=== PATIENT | male | born 1970 | race Caucasian/White ===

== ENCOUNTER 2025-02-28 17:02 | Emergency (ER) | payer OTHER ==
[~2025-02-28] VITALS: Ht 188 cm; Wt 146.2 kg
[~2025-02-28 17:02] MED LIST: IBUPROFEN800 MG PO; RANITIDINE HCL150 M1 PO; TRAMADOL HCL50 MG PO; ZOFRAN ODT4 MG PO
[2025-02-28] MEDS ORDERED: SODIUM CHLORIDE 0.9% 1,000 ML IV PRN (17:15)
[2025-02-28] MEDS ORDERED: KETOROLAC TROMETHAMINE 30 MG/ML VIAL IV ONE (17:15)
[2025-02-28] MEDS ORDERED: HYDROmorphone HCL 1 MG/ML SYR IV PRN ×2 (17:15→20:00)
[2025-02-28 17:23] LABS: BASOPHILS 0.7 % (0.2-1.2); EOSINOPHILS 4.1 % (0.8-7.0); LYMPHOCYTES 21.7 % (21.8-53.1); MCH 29.5 PG (25.7-32.2); MCHC 31.8 g/dL (32.3-36.5); MCV 92.8 fL (79.0-92.2); MONOCYTES 10.3 % (5.3-12.2); NEUTROPHILS 63.0 % (34.0-67.9); RBC 4.84 M/uL (4.63-6.08)
[2025-02-28 17:40] LABS: ALT (SGPT) 43.0 U/L (14-59); AST (SGOT) 26.0 U/L (15-37); GLOMERULAR FILTRATION RATE,EST 57.0 mL/min (>60); PROTEIN, TOTAL 7.6 g/dL (6.4-8.2); UREA NITROGEN 12.0 mg/dL (7-18)
[2025-02-28] MEDS ORDERED: OMEPRAZOLE20 MG PO (18:20)
[2025-02-28] MEDS ORDERED: LISINOPRIL-HCT1 EACH PO (18:20)
[2025-02-28] MEDS ORDERED: CITALOPRAM HBR10 MG PO (18:21)
[2025-02-28] MEDS ORDERED: TAMSULOSIN HCL 0.4 MG CAP PO ONE (20:00)
[2025-02-28 20:24] LABS: BLOOD/HGB, URINE LARGE (Negative); KETONE, URINE NEGATIVE (Negative); LEUK ESTERASE, URINE NEGATIVE (negative); NITRITE, URINE NEGATIVE (negative)
[2025-02-28 20:31] LABS: BACTERIA, URINE NONE SEEN /hpf (negative); CASTS, URINE NONE SEEN \\lpf; CRYSTALS, URINE NONE SEEN (0-1+); EPITHELIAL CELLS, URINE SQUAMOUS 1+ /lpf (0-1+); REFLEX CULTURE, URINE No (No)
[2025-02-28 21:23] VITALS: BP 170/103
== END 2025-02-28 21:24 | disposition short-term general hospital (02) ==
LOC: ED 17:02
PROVIDERS: Emergency Medicine
DX: N13.2 Hydronephrosis with renal and ureteral calculous obstruction (principal); Z88.5 Allergy status to narcotic agent; Z79.899 Other long term (current) drug therapy
CPT/HCPCS: 36415; 74176; 80053; 81001; 85025; 96361; 96374; 96375; 96376; 99285-25; J1171; J1790; J1885; J2405; J7030

== ENCOUNTER 2025-03-12 13:39 | Emergency (ER) | payer OTHER ==
[~2025-03-12] VITALS: Ht 188 cm; Wt 144.8 kg
[~2025-03-12 13:39] MED LIST changes: +CITALOPRAM HBR10 MG PO; +LISINOPRIL-HCT1 EACH PO; +OMEPRAZOLE20 MG PO
--- OUTSIDE RECORDS SUMMARY | 2025-03-12 13:46 | XMS ---
PreManage Notification: FREDY IVERSON Security Gym Teacher Events No recent Security Events currently on file CRITERIA MET - [facility] - 2 Visits in 30 Days CARE PROVIDERS JUDY DE LOS SANTOS Nurse Practitioner: Adult Health 08/13/2015-Susie RICHARD PHONE: Unknown -, [facility] Dentist: Research Professional Current [place] PHONE: [phone] DAMON SARKAR Emergency Medicine Current PHONE: Unknown [facility]/[place]: Rural Health Current FAMILY PHONE: [phone] Mona has no Care Guidelines for this patient. Luciano VISIT COUNT (12 MO.) 2 KATHARINA Vasquez TOTAL 2 NOTE: Visits indicate total known visits. ED/UCC VISIT TRACKING (12 MO.) 03/12/2025 13:40 KATHARINA Mendenhall [place] TYPE: Emergency COMPLAINT: - FLANK PAIN 02/28/2025 17:03 KATHARINA Mendenhall [place] TYPE: Emergency COMPLAINT: - FLANK PAIN, SOB DIAGNOSES: - Allergy status to narcotic agent - Hydronephrosis with renal and ureteral calculous obstruction - Other long term care pharmacist (current) drug therapy - Unspecified abdominal pain INPATIENT VISIT TRACKING (12 MO.) No inpatient visits to display in this time frame [email or web address]
[2025-03-12 14:15] LABS: BASOPHILS 0.5 % (0.2-1.2); EOSINOPHILS 3.1 % (0.8-7.0); LYMPHOCYTES 21.8 % (21.8-53.1); MCH 29.7 PG (25.7-32.2); MCHC 33.0 g/dL (32.3-36.5); MCV 90.2 fL (79.0-92.2); MONOCYTES 9.0 % (5.3-12.2); NEUTROPHILS 65.2 % (34.0-67.9); RBC 5.28 M/uL (4.63-6.08)
[2025-03-12] MEDS ORDERED: KETOROLAC TROMETHAMINE 15 MG/ML VIAL IV ONE (14:15)
[2025-03-12 14:18] LABS: BLOOD/HGB, URINE LARGE (Negative); KETONE, URINE TRACE (Negative); LEUK ESTERASE, URINE SMALL (negative); NITRITE, URINE POSITIVE (negative)
[2025-03-12 14:27] LABS: EPITHELIAL CELLS, URINE NONE SEEN /lpf (0-1+)
[2025-03-12 14:28] LABS: BACTERIA, URINE 1+ /hpf (negative); CASTS, URINE NONE SEEN \\lpf; CRYSTALS, URINE NONE SEEN (0-1+); REFLEX CULTURE, URINE Yes (No)
[2025-03-12 14:31] LABS: ALT (SGPT) 41.0 U/L (14-59); AST (SGOT) 21.0 U/L (15-37); GLOMERULAR FILTRATION RATE,EST 84.0 mL/min (>60); PROTEIN, TOTAL 7.7 g/dL (6.4-8.2); UREA NITROGEN 20.0 mg/dL (7-18)
[2025-03-12] MEDS ORDERED: MORPHINE SULFATE 4 MG/ML VIAL IV ONE ×2 (15:00→16:30)
[2025-03-12] MEDS ORDERED: CIPROFLOXACIN/DEXTROSE 400 MG/200 ML PIGGYBACK IV ONE (15:30)
[2025-03-12] MEDS ORDERED: OXYCODONE/ACETAMINOPHEN 1 TAB HOME.PACK PO ONE (17:00)
[2025-03-12] MEDS ORDERED: CIPRO500 MG PO (17:01)
[2025-03-12] MEDS ORDERED: PERCOCET 5-3251 EACH PO (17:01)
[2025-03-12 17:15] VITALS: BP 148/107
== END 2025-03-12 17:16 | disposition home or self-care (01) ==
LOC: ED 13:39
PROVIDERS: Emergency Medicine
DX: R10.9 Unspecified abdominal pain (principal); W54.1XXA Struck by dog, initial encounter; Z87.891 Personal history of nicotine dependence; Z88.5 Allergy status to narcotic agent; Z79.899 Other long term (current) drug therapy
CPT/HCPCS: 36415; 74176; 80053; 81001; 85025; 87088; 96365; 96375; 96376; 99284-25; J0744; J1885; J2270; J2405

== ENCOUNTER 2025-03-19 20:28 | Emergency (ER) | payer OTHER ==
[~2025-03-19] VITALS: Ht 188 cm; Wt 150.0 kg
[~2025-03-19 20:28] MED LIST changes: +CIPRO500 MG PO; +PERCOCET 5-3251 EACH PO
--- OUTSIDE RECORDS SUMMARY | 2025-03-19 20:36 | XMS ---
PreManage Notification: FREDY IVERSON Security Instructor Product Inspection Events No recent Security Events currently on file CRITERIA MET - [facility] - 2 Visits in 30 Days CARE PROVIDERS JUDY DE LOS SANTOS Nurse Practitioner: Adult Health 08/13/2015-Susie RICHARD PHONE: Unknown -, [facility] Dentist: Dormitory Supervisor Current [place] PHONE: [phone] DAMON SARKAR Emergency Medicine Current PHONE: Unknown [facility]/[place]: Rural Health Current FAMILY PHONE: [phone] oMna has no Care Guidelines for this patient. Luciano VISIT COUNT (12 MO.) 3 KATHARINA Vasquez TOTAL 3 NOTE: Visits indicate total known visits. ED/UCC VISIT TRACKING (12 MO.) 03/19/2025 20:29 KATHARINA Mendenhall [place] TYPE: Emergency COMPLAINT: - FLANK PAIN 03/12/2025 13:40 KATHARINA Mendenhall [place] TYPE: Emergency COMPLAINT: - FLANK PAIN DIAGNOSES: - Allergy status to narcotic agent - Other termite exterminator (current) drug therapy - Personal history of nicotine dependence - Struck by dog, initial encounter - Unspecified abdominal pain 02/28/2025 17:03 KATHARINA Mendenhall [place] TYPE: Emergency COMPLAINT: - FLANK PAIN, SOB DIAGNOSES: - Allergy status to narcotic agent - Hydronephrosis with renal and ureteral calculous obstruction - Other alf (current) drug therapy - Unspecified abdominal pain INPATIENT VISIT TRACKING (12 MO.) No inpatient visits to display in this time frame [id number]
[2025-03-19 21:38] LABS: BASOPHILS 0.7 % (0.2-1.2); EOSINOPHILS 9.5 % (0.8-7.0); LYMPHOCYTES 29.6 % (21.8-53.1); MCH 29.4 PG (25.7-32.2); MCHC 31.9 g/dL (32.3-36.5); MCV 92.1 fL (79.0-92.2); MONOCYTES 9.4 % (5.3-12.2); NEUTROPHILS 50.4 % (34.0-67.9); RBC 4.05 M/uL (4.63-6.08)
[2025-03-19] MEDS ORDERED: SODIUM CHLORIDE 0.9% 1,000 ML IV ONE (21:45)
[2025-03-19] MEDS ORDERED: KETOROLAC TROMETHAMINE 30 MG/ML VIAL IV ONE (21:45)
[2025-03-19] MEDS ORDERED: HYDROmorphone HCL 1 MG/ML SYR IV ONE (21:45)
[2025-03-19 21:54] LABS: ALT (SGPT) 30.0 U/L (14-59); AST (SGOT) 25.0 U/L (15-37); GLOMERULAR FILTRATION RATE,EST 80.0 mL/min (>60); PROTEIN, TOTAL 6.6 g/dL (6.4-8.2); UREA NITROGEN 22.0 mg/dL (7-18)
[2025-03-19 22:25] LABS: BLOOD/HGB, URINE LARGE (Negative); KETONE, URINE TRACE (Negative); LEUK ESTERASE, URINE TRACE (negative); NITRITE, URINE POSITIVE (negative)
[2025-03-19 22:29] LABS: EPITHELIAL CELLS, URINE SQUAMOUS 1+ /lpf (0-1+)
[2025-03-19] MEDS ORDERED: HYDROmorphone HCL 1 MG/ML SYR IV PRN (22:30)
[2025-03-19 22:31] LABS: BACTERIA, URINE 4+ /hpf (negative); CASTS, URINE NONE SEEN \\lpf; CRYSTALS, URINE NONE SEEN (0-1+); REFLEX CULTURE, URINE Yes (No)
[2025-03-19] MEDS ORDERED: ONDANSETRON 4 MG HOME.PACK SL ONE (23:45)
[2025-03-19] MEDS ORDERED: CEFDINIR 300 MG HOME.PACK PO ONE (23:45)
[2025-03-19] MEDS ORDERED: HYDROmorphone HCL 2 MG HOME.PACK PO ONE (23:45)
[2025-03-19] MEDS ORDERED: ONDANSETRON ODT8 MG PO (23:48)
[2025-03-19] MEDS ORDERED: KETOROLAC TROME10 MG PO (23:48)
[2025-03-19] MEDS ORDERED: CEFDINIR300 MG PO (23:48)
[2025-03-19] MEDS ORDERED: DILAUDID2 MG PO (23:48)
[2025-03-19] MEDS ORDERED: COLACE100 MG PO (23:48)
[2025-03-20 00:19] VITALS: BP 144/99
== END 2025-03-19 23:55 | disposition home or self-care (01) ==
LOC: ED 20:28
PROVIDERS: Family Medicine
DX: N13.6 Pyonephrosis (principal); Z96.0 Presence of urogenital implants; Z87.891 Personal history of nicotine dependence; Z88.5 Allergy status to narcotic agent; Z79.899 Other long term (current) drug therapy
CPT/HCPCS: 36415; 74176; 80053; 81001; 85025; A9270; J0696; J1171; J1885; J2405; J7030

== ENCOUNTER 2025-03-31 08:40 | Day surgery (SDC) | payer OTHER ==
[~2025-03-31] VITALS: Ht 188 cm; Wt 148.0 kg
[~2025-03-31 08:40] MED LIST changes: +CEFAZOLIN SODIUM 3 GM in SODIUM CHLORIDE 0.9% 100 ML IV SCH; +CEFDINIR300 MG PO; +COLACE100 MG PO; +DILAUDID2 MG PO; +IBLOOD GLUCOSE TEST STRIP 1 EA TEST VI PRN; +KETOROLAC TROME10 MG PO; +LACTATED RINGER'S 1,000 ML IV SCH; +LIDOCAINE HCL 1% 5 ML SDV INJ ONE; +ONDANSETRON ODT8 MG PO; +ROXYBOND PO
[2025-03-31 08:59] VITALS: BP 170/114
[2025-03-31] MEDS ORDERED: HYDROmorphone HCL 1 MG/ML SYR IV PRN ×2 (10:15→13:15)
[2025-03-31] MEDS ORDERED: KETOROLAC TROMETHAMINE 30 MG/ML VIAL IV PRN (10:15)
[2025-03-31] MEDS ORDERED: PROMETHAZINE HCL 25 MG TAB PO PRN (10:15)
[2025-03-31] MEDS ORDERED: OXYCODONE/APAP 5/325 TAB PO PRN (10:15)
[2025-03-31] MEDS ORDERED: PHENAZOPYRIDINE HCL 100 MG TAB PO PRN (10:30)
[2025-03-31 10:47] VITALS: BP 169/111
--- NOTE | 2025-03-31 10:48 | NUR ---
PT AWAKE WATCHING TV. WARM BLANKET PROVIDED. UPDATE ON SURGERY WAIT TIME. CALL LIGHT WITHIN REACH.
--- NOTE | 2025-03-31 12:10 | NUR ---
PT LAYING IN BED WATCHING TV. PT UPDATED ON SURGERY WAIT TIME. NO OTHER NEEDS AT THIS TIME. CALL LIGHT WITHIN REACH.
[2025-03-31] MEDS ORDERED: SODIUM CHLORIDE 0.9% 20 ML IV ONE (12:35)
[2025-03-31] MEDS ORDERED: LIDOCAINE HCL 2% 5 ML SDV ONE (12:53)
[2025-03-31] MEDS ORDERED: fentaNYL citrate 100 MCG/2 ML VIAL ONE ×2 (12:53→14:20)
[2025-03-31] MEDS ORDERED: MIDAZOLAM HCL 2 MG/2 ML VIAL ONE (12:54)
[2025-03-31] MEDS ORDERED: NALOXONE HCL 0.4 MG SYR IV PRN (13:15)
[2025-03-31] MEDS ORDERED: PROCHLORPERAZINE EDISYLATE 10 MG/2 ML VIAL IV PRN (13:15)
[2025-03-31] MEDS ORDERED: fentaNYL citrate 50 MCG/ML SDV IV PRN (13:15)
[2025-03-31] MEDS ORDERED: IBLOOD GLUCOSE TEST STRIP 1 EA TEST VI PRN (13:15)
[2025-03-31] MEDS ORDERED: DEXAMETHASONE SOD PHOS 4 MG/ML VIAL ONE (14:32)
[2025-03-31] MEDS ORDERED: LABETALOL HCL 20 MG/4 ML VIAL ONE (14:43)
--- NOTE | 2025-03-31 14:59 | NUR ---
03/31/25 1459 Rani Barksdale 1440- PT PRESENTS TO PACU, SEMI GEORGE POSITION, EYES OPEN BUT PT NOT ABLE TO ANSWER QUESTIONS. PT IS VERY REACTIVE AND MOVING AROUND. BREATHING EVEN AND NON LABORED ON 6L O2 PER MASK, LR INFUSING TO RH IV. ABD SOFT, NON DISTENDED. STENT IN PLACE AND ATTACHED WITH STERI STRIPS TO PENIS, NO BLEEDING. ALL MONITORS IN PLACE. 1445- PT HYPERTENSIVE, MEDICATED PER ANESTHESIA. 1455- PT C/O 5/10 PAIN, TOLERABLE BECAUSE HE DOESN'T WANT DRUGS. OFFERED TORADOL, PT REQUESTS TO TAKE IT. EDUCATED IF PAIN IS NOT TOLERABLE, OTHER MEDICATIONS ARE ORDERED.
[2025-03-31 15:20] VITALS: BP 155/109
[2025-03-31 16:22] VITALS: BP 147/86
--- NOTE | 2025-03-31 16:26 | NUR ---
1615- PT IS RESTING. PT REPORTS PAIN IS A 3/10 AND THAT PAIN MEDICAITON HELPED. SURIGCAL SITE ASSESSED. LR INFUSING. CALL LIGHT IN REACH, BED IN LOCKED IN THE LOWEST POSITON. PT HAS EATEN SOME PUDDING AND CRACKERS, ANS SIPPING ON WATER. PT DENIES NAUSEA. DISCAHRGE CRITERIA DISCUSSED AND PT IS UNDERSTANDING.
[2025-03-31] MEDS ORDERED: SEVOFLURANE 250 ML BTL INH ONE (16:28)
--- NOTE | 2025-03-31 16:47 | NUR ---
1630- PT UP TO VOID. VOIDED 200ML. BRIGHT RED IN COLOR.
--- NOTE | 2025-03-31 17:05 | NUR ---
7218-WENT OVER DISCHARGE INSTRUCTIONS WITH PT AND FAMILY. WENT OVER POSTOP MEDICATIONS. ALL QUESTIONS ANSWERED. PT AMBULATES TO WHEELCHAIR AND RIDE PROVIDED TO FRONT OF HOSPITAL WHERE RIDE WAS WAITING WITH THE CAR.
[2025-04-05 08:45] LABS: CALCULI MASS 69 mg (())
== END 2025-03-31 16:55 | disposition home or self-care (01) ==
LOC: DS 08:40
PROVIDERS: ATTEND Urology
PROC: 0TC68ZZ Extirpation of Matter from Right Ureter, Via Natural or Artificial Opening Endoscopic (ICD-10-PCS; principal; 2025-03-31 10:15)
PROC: 0T768DZ Dilation of Right Ureter with Intraluminal Device, Via Natural or Artificial Opening Endoscopic (ICD-10-PCS; 2025-03-31 10:15)
DX: N20.1 Calculus of ureter (principal); I10 Essential (primary) hypertension; K21.9 Gastro-esophageal reflux disease without esophagitis; Z79.899 Other long term (current) drug therapy; Z87.891 Personal history of nicotine dependence; Z88.5 Allergy status to narcotic agent
CPT/HCPCS: 00918; 74420; 82365; C1769; C2617; J0688; J1100; J1171; J1885; J2003; J2250; J2405; J2704; J3010; J7121; Q9967

== ENCOUNTER 2025-04-04 16:24 | Emergency (ER) | payer OTHER ==
[~2025-04-04] VITALS: Ht 188 cm; Wt 151.0 kg
[~2025-04-04 16:24] MED LIST changes: -CEFAZOLIN SODIUM 3 GM in SODIUM CHLORIDE 0.9% 100 ML IV SCH; -IBLOOD GLUCOSE TEST STRIP 1 EA TEST VI PRN; -LACTATED RINGER'S 1,000 ML IV SCH; -LIDOCAINE HCL 1% 5 ML SDV INJ ONE
--- OUTSIDE RECORDS SUMMARY | 2025-04-04 16:31 | XMS ---
PreManage Notification: FREDY IVERSON Security Laboratory Analyst Events No recent Security Events currently on file CRITERIA MET - [facility] - 2 Visits in 30 Days CARE PROVIDERS JUDY DE LOS SANTOS Nurse Practitioner: Adult Health 08/13/2015-Susie RICHARD PHONE: Unknown -, [facility]ist: Teller Manager Current [place] PHONE: [phone] DAMON SARKAR Emergency Medicine Current PHONE: Unknown [facility]/[place]: Rural Health Current FAMILY PHONE: [phone] Mona has no Care Guidelines for this patient. Luciano VISIT COUNT (12 MO.) 4 KATHARINA Vasquez TOTAL 4 NOTE: Visits indicate total known visits. ED/UCC VISIT TRACKING (12 MO.) 04/04/2025 16:25 KATHARINA Mendenhall [place] TYPE: Emergency COMPLAINT: - NEEDS STENT REMOVED 03/19/2025 20:29 KATHARINA Mendenhall [place] TYPE: Emergency COMPLAINT: - FLANK PAIN DIAGNOSES: - Allergy status to narcotic agent - Other mcc (current) drug therapy - Personal history of nicotine dependence - Presence of urogenital implants - Pyonephrosis - Unspecified abdominal pain 03/12/2025 13:40 KATHARINA Mendenhall [place] TYPE: Emergency COMPLAINT: - FLANK PAIN DIAGNOSES: - Allergy status to narcotic agent - Other intermediate frame tender (current) drug therapy - Personal history of nicotine dependence - Struck by dog, initial encounter - Unspecified abdominal pain 02/28/2025 17:03 KATHARINA Mendenhall [place] TYPE: Emergency COMPLAINT: - FLANK PAIN, SOB DIAGNOSES: - Allergy status to narcotic agent - Hydronephrosis with renal and ureteral calculous obstruction - Other intermediate frame tender (current) drug therapy - Unspecified abdominal pain INPATIENT VISIT TRACKING (12 MO.) No inpatient visits to display in this time frame [id number]
[2025-04-04 19:41] VITALS: BP 128/78
== END 2025-04-04 19:42 | disposition home or self-care (01) ==
LOC: ED 16:24
DX: T83.9XXA Unspecified complication of genitourinary prosthetic device, implant and graft, initial encounter (principal); Z87.891 Personal history of nicotine dependence
CPT/HCPCS: 99282